=== PATIENT | male | born 2000 | race Two or more races ===

== ENCOUNTER 2020-05-06 21:27 | Emergency (ER) | payer OTHER ==
[~2020-05-06] VITALS: Ht 167.6 cm; Wt 72.6 kg
[2020-05-07] MEDS ORDERED: ACETAMINOPHEN650 M2 PO (01:14)
[2020-05-07] MEDS ORDERED: MEDROLPACK PO (01:14)
[2020-05-07] MEDS ORDERED: IVERMECTIN3 MG PO (01:14)
[2020-05-07] MEDS ORDERED: VITAMIN C WIT1000 MG PO (01:14)
[2020-05-07] MEDS ORDERED: MELATONIN10 M2 PO (01:14)
[2020-05-07] MEDS ORDERED: AZITHROMYCIN500 MG PO (01:14)
[2020-05-07] MEDS ORDERED: VITAMIN D3-ALO1 EACH PO (01:14)
[2020-05-07] MEDS ORDERED: COLCHICINE0.6 MG PO (01:14)
== END 2020-05-07 03:11 | disposition home or self-care (01) ==
LOC: ER 21:27
DX: B34.9 Viral infection, unspecified (principal); A90 Dengue fever [classical dengue]; Z20.822 Contact with and (suspected) exposure to COVID-19